=== PATIENT | male | born 2000 | race African-American/Black ===

== ENCOUNTER 2024-11-06 09:56 | Inpatient (IN) | payer OTHER ==
[~2024-11-06] VITALS: Ht 167.6 cm; Wt 90.0 kg
[2024-11-06] MEDS: FOLIC ACID 1 MG TAB PO SCH (09:00)
[2024-11-06] MEDS: MULTIVITAMINS/MINERALS THERAP 1 TAB PO SCH (09:00)
[2024-11-06 10:40] LABS: PLATELET COUNT, AUTOMATED 207 10^3/uL (150-450)
[2024-11-06 11:05] LABS: ETHYL ALCOHOL (ETHANOL) < 0.003 % (0.000-0.010)
[2024-11-06 11:06] LABS: SALICYLATE LEVEL < 3.0 MG/DL (<30)
[2024-11-06 11:07] LABS: ALT/SGPT 27 U/L (7.0-40); AST/SGOT 17 U/L (<34); CALCIUM LEVEL 9.3 MG/DL (8.5-10.1); CARBON DIOXIDE LEVEL 26 MMOL/L (20-31); CHLORIDE LEVEL 105 MMOL/L (98-107); CREATININE FOR GFR 0.93 MG/DL (0.70-1.30); GLOMERULAR FILTRATION RATE > 90.0 (>60); POTASSIUM SERUM 3.9 MMOL/L (3.5-5.1); SODIUM LEVEL 142 MMOL/L (136-145)
[2024-11-06 12:06] LABS: AMPHETAMINES LEVEL URINE NEGATIVE (NEGATIVE); BARBITURATES URINE NEGATIVE (NEGATIVE); BENZODIAZEPINES URINE NEGATIVE (NEGATIVE); COCAINE METABOLITE URINE NEGATIVE (NEGATIVE); METHADONE URINE NEGATIVE (NEGATIVE); OPIATES URINE NEGATIVE (NEGATIVE)
[2024-11-06 12:07] LABS: CANNABINOIDS URINE NEGATIVE (NEGATIVE); PHENCYCLIDINE URINE NEGATIVE (NEGATIVE)
[2024-11-06] MEDS ORDERED: HOME MED LIST COMPLETE! XX SCH (12:20)
[2024-11-06] MEDS ORDERED: ACETAMINOPHEN 325 MG TAB PO PRN (14:10)
[2024-11-06] MEDS ORDERED: IBUPROFEN 400 MG TAB PO PRN (14:10)
[2024-11-06] MEDS ORDERED: MAALOX 30 ML SUSP *UDC PO PRN (14:10)
[2024-11-06] MEDS ORDERED: MOM 30 ML SUSPENSION UDC PO PRN (14:10)
[2024-11-06] MEDS: THIAMINE 100 MG TAB PO SCH (21:00)
[2024-11-06] MEDS: traZODone 50 MG TAB PO PRN (21:30)
[2024-11-06 21:48] VITALS: BP 139/80; TEMP 97.7; O2SAT 99
[2024-11-07 06:32] VITALS: BP 135/59; TEMP 97.7; O2SAT 100
[2024-11-07 06:50] VITALS: BP 139/59
[2024-11-07] MEDS: SERTRALINE HCL 50 MG TAB PO SCH (08:49)
[2024-11-07 14:50] VITALS: BP 125/66; TEMP 98.2; O2SAT 99
[2024-11-07 20:00] VITALS: BP 128/88
[2024-11-08 06:25] VITALS: BP 133/62; TEMP 97.1; O2SAT 100
[2024-11-08 06:26] VITALS: BP 133/62
[2024-11-08 17:28] VITALS: BP 142/77; TEMP 97.7
[2024-11-08 22:00] VITALS: BP 133/58
[2024-11-09 06:00] VITALS: BP 127/66
[2024-11-09 06:24] VITALS: BP 127/66; TEMP 98.3; O2SAT 96
[2024-11-09 15:18] VITALS: BP 130/73; TEMP 98; O2SAT 98
[2024-11-10 06:29] VITALS: BP 130/67; TEMP 98.1; O2SAT 99
[2024-11-10] MEDS: SERTRALINE HCL 50 MG TAB PO ONE (10:58)
[2024-11-10 14:51] VITALS: BP 128/64; TEMP 98.2; O2SAT 99
[2024-11-11] MEDS: SERTRALINE 100 MG TAB PO SCH (09:37)
[2024-11-11 15:40] VITALS: BP 140/73; TEMP 98.1; O2SAT 97
[2024-11-12 15:21] VITALS: BP 142/71; TEMP 98.1; O2SAT 99
[2024-11-13 07:08] VITALS: BP 120/84; TEMP 97.9; O2SAT 99
[2024-11-13] MEDS ORDERED: ZOLO100T PO (08:20)
[2024-11-13] MEDS ORDERED: TRAZ-252 PO (08:20)
== END 2024-11-13 09:37 | disposition home or self-care (01) | DRG 881 ==
LOC: EDBD 09:56 → M ED 09:56 → M ED INP 14:08 → M PSY 21:03
PROVIDERS: ADMIT General Practice; ATTEND General Practice
DX: F32.A Depression, unspecified (principal); R45.851 Suicidal ideations; F17.200 Nicotine dependence, unspecified, uncomplicated

== ENCOUNTER 2025-02-23 01:13 | Inpatient (IN) | payer OTHER ==
[~2025-02-23 01:13] MED LIST: TRAZ-252 PO; ZOLO100T PO
[2025-02-23 02:44] LABS: PLATELET COUNT, AUTOMATED 230 10^3/uL (150-450)
[2025-02-23 02:59] LABS: AMPHETAMINES LEVEL URINE NEGATIVE (NEGATIVE); BARBITURATES URINE NEGATIVE (NEGATIVE); BENZODIAZEPINES URINE NEGATIVE (NEGATIVE); CANNABINOIDS URINE NEGATIVE (NEGATIVE); COCAINE METABOLITE URINE NEGATIVE (NEGATIVE); METHADONE URINE NEGATIVE (NEGATIVE); OPIATES URINE NEGATIVE (NEGATIVE); PHENCYCLIDINE URINE NEGATIVE (NEGATIVE)
[2025-02-23 03:00] LABS: ETHYL ALCOHOL (ETHANOL) < 0.003 % (0.000-0.010)
[2025-02-23 03:02] LABS: ALT/SGPT 31 U/L (7.0-40); AST/SGOT 24 U/L (<34); CALCIUM LEVEL 8.8 MG/DL (8.5-10.1); CARBON DIOXIDE LEVEL 27 MMOL/L (20-31); CHLORIDE LEVEL 110 MMOL/L (98-107); CREATININE FOR GFR 0.99 MG/DL (0.70-1.30); GLOMERULAR FILTRATION RATE > 90.0 (>60); POTASSIUM SERUM 4.3 MMOL/L (3.5-5.1); SALICYLATE LEVEL < 3.0 MG/DL (<30); SODIUM LEVEL 146 MMOL/L (136-145)
[2025-02-23] MEDS ORDERED: MOM 30 ML SUSPENSION UDC PO PRN (03:40)
[2025-02-23] MEDS ORDERED: IBUPROFEN 400 MG TAB PO PRN (03:40)
[2025-02-23] MEDS ORDERED: ACETAMINOPHEN 325 MG TAB PO PRN (03:40)
[2025-02-23] MEDS ORDERED: MAALOX 30 ML SUSP *UDC PO PRN (03:40)
[2025-02-23] MEDS: THIAMINE 100 MG TAB PO SCH (04:25)
[2025-02-23 05:47] VITALS: BP 142/93; TEMP 97.2; O2SAT 97
[2025-02-23] MEDS ORDERED: NICOTINE 14 MG/24 HR TRANSDERMAL TD PRN (08:35)
[2025-02-23] MEDS: MULTIVITAMINS/MINERALS THERAP 1 TAB PO SCH (09:00)
[2025-02-23] MEDS: FOLIC ACID 1 MG TAB PO SCH (09:00)
[2025-02-23] MEDS ORDERED: BUPR-71 PO (10:19)
[2025-02-23] MEDS ORDERED: ZOLO100T PO (10:19)
[2025-02-23] MEDS ORDERED: DOXY100C3 PO (10:19)
[2025-02-23] MEDS ORDERED: TRAZ-252 PO (10:19)
[2025-02-23] MEDS ORDERED: NALT50TA4 PO (10:19)
[2025-02-23] MEDS ORDERED: HOME MED LIST COMPLETE! XX SCH (10:20)
[2025-02-23] MEDS: NALTREXONE 50 MG TAB PO SCH (10:50)
[2025-02-23] MEDS: FLUoxetine 20 MG CAP PO SCH (10:51)
[2025-02-23] MEDS ORDERED: BUPR150T12 PO (13:37)
[2025-02-23 14:22] VITALS: BP 145/85; TEMP 97.6; O2SAT 100
[2025-02-23 14:25] VITALS: BP 136/67; TEMP 97.8; O2SAT 100
[2025-02-23 22:09] VITALS: BP 127/61
[2025-02-24 06:14] VITALS: BP 152/78; TEMP 98.2; O2SAT 97
[2025-02-24 20:29] VITALS: BP 152/78; TEMP 98.2; O2SAT 97
[2025-02-24 20:59] VITALS: BP 130/81
[2025-02-24 21:01] VITALS: BP 130/81
[2025-02-25 06:30] VITALS: BP 120/57; TEMP 97.7; O2SAT 97
[2025-02-25 14:18] VITALS: BP 140/64; TEMP 97.7; O2SAT 100
[2025-02-26 06:42] VITALS: BP 107/58; TEMP 97.6; O2SAT 100
[2025-02-26] MEDS ORDERED: FLUO-365 PO (09:29)
== END 2025-02-26 11:25 | disposition home or self-care (01) | DRG 885 ==
LOC: M ED 01:13 → M ED INP 03:36 → M PSY 05:06
PROVIDERS: ADMIT Psychiatry & Neurology Neurology; ATTEND Psychiatry & Neurology Neurology
DX: F33.1 Major depressive disorder, recurrent, moderate (principal); R45.851 Suicidal ideations; E87.0 Hyperosmolality and hypernatremia; F60.89 Other specific personality disorders; F43.20 Adjustment disorder, unspecified; G47.00 Insomnia, unspecified; Z79.899 Other long term (current) drug therapy